=== PATIENT | female | born 1940 | race Caucasian/White ===

== ENCOUNTER 2022-03-16 11:46 | Outpatient (CLI) | payer MEDICARE ==
[2022-03-16 13:51] LABS: #Basophils 0.1 10x3/uL (0.0-0.2); #Monocytes 0.3 10x3/uL (0.0-1.1); #Neutrophils 2.2 10x3/uL (1.5-8.4); %Basophils 1.2 % (0.0-2.0); %Eosinophils 0.7 % (0.0-6.0); %Lymphocytes 37.8 % (18.0-47.0); %Monocytes 6.5 % (0.0-10.0); %Neutrophils 53.6 % (40.0-75.0); Hemoglobin 14.9 g/dL (12.0-15.5); Mean Corpuscular HGB CONC 34.5 g/dL (32.0-36.0); Mean Corpuscular Hemoglobin 32.1 pg (27.0-33.0); Mean Corpuscular Volume 93.1 fl (81.6-98.3); Mean Platelet Volume 9.5 fl (7.4-10.4); Platelet Count 189 10x3/uL (150-450); RBC Distribution Width 11.9 % (11.5-14.5); Red Blood Cell (RBC) Count 4.64 10x6/uL (3.90-5.03); White Blood Cell (WBC) Count 4.2 10x3/uL (3.5-10.5)
[2022-03-16 14:19] LABS: ALT (SGPT) 7 U/L (8-55); AST (SGOT) 14 U/L (5-34); Albumin 4.3 g/dL (3.4-4.8); Alkaline Phosphatase 71 U/L (40-110); Anion Gap 17 mmol/L (10-20); BUN (Urea Nitrogen) 15 mg/dL (9.8-20.1); Calc. Creatinine Clearance 0 mL/min (70-130); Calcium 10.1 mg/dL (7.8-10.44); Carbon Dioxide 27 mmol/L (23-31); Chloride 98 mmol/L (98-107); Estimated GFR 51; Globulin 2.7 g/dL (2.4-3.5); Glucose 91 mg/dL (83-110); Potassium 3.5 mmol/L (3.5-5.1); Sodium 138 mmol/L (136-145)
== END 2022-03-16 11:47 | disposition home or self-care (01) ==
LOC: LABBT 11:46
PROVIDERS: ATTEND Specialist
DX: Z01.818 Encounter for other preprocedural examination (principal); D50.8 Other iron deficiency anemias
CPT/HCPCS: 80053; 85025; 93005; 93010

== ENCOUNTER 2022-03-17 10:06 | Day surgery (SDC) | payer MEDICARE ==
[2022-03-16 13:17] VITALS: BMI 27.3
[2022-03-17] MEDS ORDERED: Acetaminophen 500 MG TAB ONE ×2 (10:29)
[2022-03-17] MEDS ORDERED: fentaNYL PF 100 MCG/2 ML SYRINGE ONE (12:30)
[2022-03-17] MEDS ORDERED: Bupivacaine/Epinephrine 0.25% 30 ML VIAL ONE (12:35)
[2022-03-17] MEDS ORDERED: Sodium Chloride 0.9% 100 ML ONE (12:42)
[2022-03-17] MEDS ORDERED: CEFAZOLIN 2 GM VIAL ONE (12:42)
[2022-03-17] MEDS ORDERED: NEOSTIGMINE 3 MG/3 ML SYR 3 MG/3 ML SYRINGE ONE (12:53)
[2022-03-17] MEDS ORDERED: Ondansetron PF 4 MG/2 ML Vial ONE (12:53)
[2022-03-17] MEDS ORDERED: ePHEDrine 50 MG/ML VIAL ONE (12:53)
[2022-03-17] MEDS ORDERED: Rocuronium Bromide 10 MG/ML (10ML VIAL) ONE (12:53)
[2022-03-17] MEDS ORDERED: GLYCOPYRROLATE/PF 0.2 MG/ML VIAL ONE (12:53)
[2022-03-17] MEDS ORDERED: PROPOFOL 200 MG/20 ML VIAL ONE (12:53)
[2022-03-17] MEDS ORDERED: FENTANYL 50 MCG/ML 1 ML VIAL ONE (14:38)
[2022-03-17] MEDS ORDERED: Ondansetron ODT 4 MG TAB ONE (16:12)
== END 2022-03-17 16:20 | disposition home or self-care (01) ==
LOC: SDC 10:06
PROVIDERS: ATTEND Specialist
PROC: 0FT44ZZ Resection of Gallbladder, Percutaneous Endoscopic Approach (ICD-10-PCS; principal; 2022-03-17)
DX: K80.10 Calculus of gallbladder with chronic cholecystitis without obstruction (principal); K82.8 Other specified diseases of gallbladder; K44.9 Diaphragmatic hernia without obstruction or gangrene; Z79.890 Hormone replacement therapy; Z79.899 Other long term (current) drug therapy; Z88.2 Allergy status to sulfonamides; Z88.5 Allergy status to narcotic agent; Z88.6 Allergy status to analgesic agent
CPT/HCPCS: 47562; C1889; J3010; 88304; J2405; J2704; J3490; Q0162

== ENCOUNTER 2022-05-19 05:34 | Inpatient (IN) | payer MEDICARE ==
[2022-05-19] MEDS ORDERED: CEFAZOLIN 2 GM VIAL ONE (06:28)
[2022-05-19] MEDS ORDERED: Acetaminophen 500 MG TAB ONE (06:28)
[2022-05-19] MEDS ORDERED: Sodium Chloride 0.9% 100 ML ONE (06:29)
[2022-05-19] MEDS ORDERED: Lidocaine 1% MPF 2 ML VIAL ONE (06:29)
[2022-05-19] MEDS ORDERED: Bupivacaine/Epinephrine 0.25% 30 ML VIAL ONE (06:34)
[2022-05-19] MEDS ORDERED: fentaNYL PF 100 MCG/2 ML SYRINGE ONE (06:42)
[2022-05-19 07:44] LABS: SARS-CoV-2 NAA Rapid Test Not Detected (NotDetected)
[2022-05-19] MEDS ORDERED: PROPOFOL 200 MG/20 ML VIAL ONE (07:45)
[2022-05-19] MEDS ORDERED: EPINEPHrine 1 MG/10 ML Abboject SYRINGE ONE ×3 (07:45→10:12)
[2022-05-19] MEDS ORDERED: Lidocaine 1% PF 5 ML VIAL ONE (07:45)
[2022-05-19] MEDS ORDERED: Dexamethasone 20 MG/5 ML VIAL ONE (07:45)
[2022-05-19] MEDS ORDERED: ePHEDrine 50 MG/ML VIAL ONE (07:45)
[2022-05-19] MEDS ORDERED: Calcium Chloride 1 GM/10 ML Abboject SYRINGE ONE ×3 (07:45→10:12)
[2022-05-19] MEDS ORDERED: Rocuronium Bromide 10 MG/ML (10ML VIAL) ONE (07:45)
[2022-05-19] MEDS ORDERED: Vecuronium 10 MG VIAL ONE (07:45)
[2022-05-19] MEDS ORDERED: Montelukast Sodium 10 mg Tablet PO SCH (09:00)
[2022-05-19] MEDS ORDERED: Non-Formulary Item 1 EACH (Tolterodine Tartrate [Tolterodine Tartrate Er] 4 MG Cap.Er.24h PO SCH (09:00)
[2022-05-19] MEDS ORDERED: Albumin 5% 500 ML ONE (09:25)
[2022-05-19] MEDS ORDERED: Sodium Bicarb 50 MEQ/50 ML VIAL ONE ×2 (09:26→09:40)
[2022-05-19] MEDS ORDERED: Midazolam HCl 5 mg/5 ml Vial ONE (09:28)
[2022-05-19] MEDS ORDERED: Norepinephrine 4 MG/4 ML VIAL ONE (09:51)
[2022-05-19] MEDS ORDERED: SUGAMMADEX SODIUM 200 MG/2 ML VIAL ONE (11:27)
[2022-05-19] MEDS ORDERED: Ipratropium/Albuterol 3 ML NEB NEB PRN (12:06)
[2022-05-19] MEDS ORDERED: Calcium Carbonate 500 MG ChewTAB PO PRN (12:06)
[2022-05-19] MEDS ORDERED: Promethazine HCl 25 MG/ML VIAL IM PRN (12:06)
[2022-05-19] MEDS ORDERED: Famotidine/PF 20 mg/2ml Vial SLOW IVP SCH ×2 (12:06→21:00)
[2022-05-19] MEDS ORDERED: Acetaminophen/Codeine 30-300mg Tablet PO PRN ×2 (12:06)
[2022-05-19] MEDS ORDERED: Morphine 2 MG/ML VIAL SLOW IVP PRN (12:06)
[2022-05-19] MEDS ORDERED: Dextrose 50% Abboject 50 ML SYRINGE SLOW IVP PRN (12:06)
[2022-05-19] MEDS ORDERED: Morphine 4 MG/ML VIAL SLOW IVP PRN (12:06)
[2022-05-19] MEDS ORDERED: Mag-Al 1200 mg/1200 mg/30 ML UDCUP PO PRN (12:06)
[2022-05-19] MEDS ORDERED: Famotidine 20 MG TAB PO SCH ×2 (12:06→21:00)
[2022-05-19] MEDS ORDERED: Dextrose 5% in Water 1,000 ML IV PRN (12:06)
[2022-05-19] MEDS ORDERED: hydrALAZINE 20 MG/ML VIAL SLOW IVP PRN (12:06)
[2022-05-19] MEDS ORDERED: Fentanyl 250 MCG/5 ML VIAL ONE (12:10)
[2022-05-19 12:48] LABS: #Lymphocytes 0.8 thou/uL (1.20-3.40); #Monocytes 0.2 thou/uL (0.11-0.59); %Basophils 0.2 % (0.0-1.0); %Eosinophils 0.2 % (0.0-10.0); %Lymphocytes 10.9 % (21.0-51.0); %Monocytes 3.2 % (0.0-10.0); %Neutrophils 85.6 % (42.0-75.0); Hemoglobin 8.6 g/dL (12.0-16.0); Mean Corpuscular HGB CONC 35.7 g/dL (32.0-36.0); Mean Corpuscular Hemoglobin 32.5 pg (27.0-31.0); Mean Platelet Volume 7.7 fL (7.4-10.4); Platelet Count 132 10x3/uL (130-400); RBC Distribution Width 13.9 % (11.5-14.5); Red Blood Cell (RBC) Count 2.66 mill/uL (4.20-5.40)
[2022-05-19 13:13] LABS: Anion Gap 15 mmol/L (10-20); BUN (Urea Nitrogen) 14 mg/dL (9.8-20.1); Calc. Creatinine Clearance 59 mL/min (70-130); Calcium 9.6 mg/dL (7.8-10.44); Carbon Dioxide 26 mmol/L (23-31); Chloride 104 mmol/L (98-107); Estimated GFR 63; Glucose 336 mg/dL (83-110); Potassium 3.5 mmol/L (3.5-5.1); Sodium 141 mmol/L (136-145)
[2022-05-19 13:52] VITALS: BMI 27.1
[2022-05-19] MEDS ORDERED: HumaLOG 300 UNITS/3 ML VIAL SC SCH (14:15)
[2022-05-19] MEDS: Ondansetron PF 4 MG/2 ML Vial IVP PRN (14:38)
[2022-05-19] MEDS: Levothyroxine Sodium 125 MCG TAB PO SCH (15:21)
[2022-05-19] MEDS: Amlodipine 5 MG TAB PO SCH (15:21)
[2022-05-19] MEDS: DULoxetine 20 MG CAP PO SCH ×2 (15:21→22:05)
[2022-05-19] MEDS: Trospium 20 MG TAB PO SCH ×2 (15:22→22:05)
[2022-05-19] MEDS ORDERED: traMADol HCl 50 MG TAB PO PRN (15:44)
[2022-05-19] MEDS: Acetaminophen 500 MG TAB PO PRN (16:04)
[2022-05-19] MEDS ORDERED: Fentanyl 100 MCG/2 ML VIAL SLOW IVP PRN (16:10)
[2022-05-19] MEDS ORDERED: Ketorolac Tromethamine 30 MG/ML VIAL IVP SCH ×2 (16:50→18:00)
[2022-05-19] MEDS: D5 1/2 NS w/20 mEq KCL 1,000 ML IV SCH (17:00)
[2022-05-19] MEDS: HumaLOG 300 UNITS/3 ML VIAL SC PRN (17:10)
[2022-05-19 17:26] LABS: #Lymphocytes 0.6 thou/uL (1.20-3.40); #Monocytes 1.1 thou/uL (0.11-0.59); %Eosinophils 0.1 % (0.0-10.0); %Lymphocytes 4.7 % (21.0-51.0); %Monocytes 8.4 % (0.0-10.0); %Neutrophils 86.8 % (42.0-75.0); Hemoglobin 9.3 g/dL (12.0-16.0); Mean Corpuscular HGB CONC 34.4 g/dL (32.0-36.0); Mean Corpuscular Hemoglobin 31.2 pg (27.0-31.0); Mean Corpuscular Volume 90.6 fl (78.0-98.0); Mean Platelet Volume 7.6 fL (7.4-10.4); Platelet Count 158 10x3/uL (130-400); RBC Distribution Width 14.3 % (11.5-14.5); Red Blood Cell (RBC) Count 2.99 mill/uL (4.20-5.40); White Blood Cell (WBC) Count 12.7 10x3/uL (4.8-10.8)
[2022-05-19 17:58] LABS: INR-International Normal Ratio 1.2; PTT 24.7 sec (22.9-36.1); Prothrombin Time 15.8 sec (12.0-14.7)
[2022-05-19] MEDS ORDERED: Fentanyl CADD 100 ML IVPB SCH (18:30)
[2022-05-19] MEDS: Ketorolac Tromethamine 30 MG/ML VIAL IVP SCH (23:49)
[2022-05-20] MEDS: HumaLOG 300 UNITS/3 ML VIAL SC PRN ×2 (00:22→06:52)
[2022-05-20] MEDS: D5 1/2 NS w/20 mEq KCL 1,000 ML IV SCH ×3 (01:14→18:15)
[2022-05-20] MEDS: Ondansetron PF 4 MG/2 ML Vial IVP PRN ×2 (01:57→21:30)
[2022-05-20 04:45] LABS: #Lymphocytes 0.7 thou/uL (1.20-3.40); #Monocytes 1.1 thou/uL (0.11-0.59); #Neutrophils 8.4 thou/uL (1.40-6.50); %Basophils 0.2 % (0.0-1.0); %Eosinophils 0.1 % (0.0-10.0); %Monocytes 10.3 % (0.0-10.0); %Neutrophils 82.3 % (42.0-75.0); Hemoglobin 8.5 g/dL (12.0-16.0); Mean Corpuscular HGB CONC 34.2 g/dL (32.0-36.0); Mean Corpuscular Hemoglobin 31.2 pg (27.0-31.0); Mean Corpuscular Volume 91.1 fl (78.0-98.0); Platelet Count 125 10x3/uL (130-400); RBC Distribution Width 14.6 % (11.5-14.5); Red Blood Cell (RBC) Count 2.73 mill/uL (4.20-5.40); White Blood Cell (WBC) Count 10.2 10x3/uL (4.8-10.8)
[2022-05-20 04:55] LABS: Hemoglobin A1c 5.4 % (4.0-6.0)
[2022-05-20 05:16] LABS: Anion Gap 11 mmol/L (10-20); BUN (Urea Nitrogen) 24 mg/dL (9.8-20.1); Calc. Creatinine Clearance 69 mL/min (70-130); Calcium 8.7 mg/dL (7.8-10.44); Carbon Dioxide 28 mmol/L (23-31); Chloride 103 mmol/L (98-107); Estimated GFR 72; Glucose 183 mg/dL (83-110); Potassium 4.3 mmol/L (3.5-5.1); Sodium 138 mmol/L (136-145)
[2022-05-20] MEDS: Ketorolac Tromethamine 30 MG/ML VIAL IVP SCH ×4 (06:04→23:28)
[2022-05-20] MEDS ORDERED: Insulin Glargine 30 UNITS/0.3 ML VIAL SC SCH (09:00)
[2022-05-20] MEDS ORDERED: HumaLOG 300 UNITS/3 ML VIAL SC SCH (09:00)
[2022-05-20] MEDS ORDERED: HumaLOG 300 UNITS/3 ML VIAL SC PRN ×2 (09:17→09:30)
[2022-05-20] MEDS ORDERED: D5 1/2 NS w/20 mEq KCL 1,000 ML IV SCH (09:19)
[2022-05-20] MEDS ORDERED: Dextrose 5% in Water 1,000 ML IV PRN (09:30)
[2022-05-20] MEDS ORDERED: Dextrose 50% Abboject 50 ML SYRINGE IVP PRN (09:30)
[2022-05-20] MEDS: Levothyroxine Sodium 125 MCG TAB PO SCH (09:37)
[2022-05-20] MEDS: Pantoprazole 40 MG VIAL IVP SCH (09:37)
[2022-05-20] MEDS: Amlodipine 5 MG TAB PO SCH (09:37)
[2022-05-20] MEDS: Trospium 20 MG TAB PO SCH ×2 (09:37→22:34)
[2022-05-20] MEDS: DULoxetine 20 MG CAP PO SCH ×2 (10:46→22:33)
[2022-05-20] MEDS ORDERED: traMADol HCl 50 MG TAB PO PRN (13:05)
[2022-05-20 13:06] LABS: Hemoglobin 7.5 g/dL (12.0-16.0); Platelet Count 121 10x3/uL (130-400)
[2022-05-20] MEDS ORDERED: Sodium Chloride 0.9% 500 ML IV SCH (13:15)
[2022-05-20] MEDS: Fentanyl 100 MCG/2 ML VIAL SLOW IVP PRN ×6 (14:14→23:29)
[2022-05-20 18:13] LABS: Hemoglobin 10.5 g/dL (12.0-16.0); Platelet Count 100 10x3/uL (130-400)
[2022-05-20] MEDS: Acetaminophen 500 MG TAB PO PRN (20:33)
[2022-05-20] MEDS: traMADol HCl 50 MG TAB PO PRN (20:33)
[2022-05-20 23:36] LABS: Bacteria/HPF 4+ HPF (None Seen); Bilirubin Negative (Negative); Blood, Urine Negative (Negative); CAUTI Indications for Culture Alt mental st,lethar; Clarity Turbid (Clear); Glucose, Urine (Dipstick) Normal (Negative); Ketone, Urine Negative (Negative); Leukocyte Negative Leu/uL (Negative); Mucous/LPF Rare LPF (<2+); Nitrite Negative (Negative); Protein, Urine (Dipstick) 50 mg/dL (Neg-Trace); RBC/HPF 0-3 HPF (0-3); Specific Gravity, Urine 1.024 (1.002-1.036); Squamous Epithelial 0-3 HPF (0-3); Urobilinogen Normal mg/dL (Less than 2); pH, Urine 5.5 (5.0-9.0)
[2022-05-20 23:39] LABS: Urine Culture Reflex No No
[2022-05-21] MEDS: Fentanyl 100 MCG/2 ML VIAL SLOW IVP PRN ×3 (00:39→08:04)
[2022-05-21] MEDS ORDERED: cefTRIAXone\\ROCEPHIN 2 GM in Sodium Chloride 0.9% 100 ML IVPB SCH (01:00)
[2022-05-21] MEDS: traMADol HCl 50 MG TAB PO PRN ×2 (01:57→08:06)
[2022-05-21] MEDS: Acetaminophen 500 MG TAB PO PRN ×2 (01:58→08:05)
[2022-05-21] MEDS: Ondansetron PF 4 MG/2 ML Vial IVP PRN (02:56)
[2022-05-21 04:41] LABS: Hemoglobin 9.9 g/dL (12.0-16.0); Mean Corpuscular HGB CONC 33.8 g/dL (32.0-36.0); Mean Corpuscular Hemoglobin 31.2 pg (27.0-31.0); Mean Corpuscular Volume 92.1 fl (78.0-98.0); Platelet Count 94 10x3/uL (130-400); RBC Distribution Width 14.3 % (11.5-14.5); Red Blood Cell (RBC) Count 3.17 mill/uL (4.20-5.40); White Blood Cell (WBC) Count 6.8 10x3/uL (4.8-10.8)
[2022-05-21] MEDS ORDERED: Sodium Chloride 0.9% 500 ML IV SCH ×2 (05:00→06:15)
[2022-05-21 05:07] LABS: Magnesium 1.4 mg/dL (1.6-2.6)
[2022-05-21 05:11] LABS: ALT (SGPT) 222 U/L (8-55); AST (SGOT) 284 U/L (5-34); Albumin 2.5 g/dL (3.4-4.8); Alkaline Phosphatase 49 U/L (40-110); Anion Gap 15 mmol/L (10-20); BUN (Urea Nitrogen) 36 mg/dL (9.8-20.1); Bilirubin, Total 0.9 mg/dL (0.2-1.2); Calc. Creatinine Clearance 34 mL/min (70-130); Calcium 8.1 mg/dL (7.8-10.44); Carbon Dioxide 19 mmol/L (23-31); Chloride 106 mmol/L (98-107); Estimated GFR 30; Globulin 1.7 g/dL (2.4-3.5); Glucose 120 mg/dL (83-110); Protein, Total 4.2 g/dL (5.8-8.1); Sodium 135 mmol/L (136-145)
[2022-05-21] MEDS ORDERED: D5 1/2 NS w/20 mEq KCL 1,000 ML IV SCH ×2 (05:12→06:32)
[2022-05-21] MEDS: Ketorolac Tromethamine 30 MG/ML VIAL IVP SCH ×2 (05:26→14:32)
[2022-05-21] MEDS ORDERED: Magnesium 2 GM/50 ML(in water) 2 GM in Premix Bag 1 BAG IVPB SCH (05:30)
[2022-05-21 05:31] LABS: Band 27 % (5-11); Lymphocytes 16 % (21-51); MDiff Complete? YES; Metamyelocyte 10 % (0-0); Monocytes 4 % (0-10); Myelocyte 3 % (0-0); Neutrophil 40 % (42-75); Ovalocytes SLIGHT = 2-5 cells (100X) (0-1/hpf); Platelet Morphology Comment Appears Decreased; Polychromasia SLIGHT = 2-3 cells (100X) (0-2/hpf)
[2022-05-21] MEDS ORDERED: Magnesium Sulfate In Water 4 GM in Premix Bag 1 BAG IVPB SCH (06:00)
[2022-05-21] MEDS ORDERED: NOREPINEPHRINE 8 MG/250 ML-D5W 250 ML IVPB SCH (06:30)
[2022-05-21] MEDS ORDERED: Dextrose 5 % And 0.9 % NaCl 1,000 ML IV SCH (06:45)
[2022-05-21 07:31] LABS: Troponin I 0.139 ng/mL (< 0.028)
[2022-05-21 07:45] LABS: Actual Bicarbonate (HCO3a) 17.3 mEq/L (22-28); Base Excess (BEa) -8.3 mEq/L (-2.0 to +3.0); CO2 Tension 36.4 mmHg (35.0-45.0); Calcium, Ionized (arterial) 1.11 mmol/L (1.12-1.30); Potassium - ABG Lab 5.07 mmol/L (3.70-5.30)
[2022-05-21 07:48] LABS: Puncture Site Arterial Line
[2022-05-21] MEDS: Amlodipine 5 MG TAB PO SCH (07:57)
[2022-05-21] MEDS ORDERED: Sodium Bicarbonate 50 MEQ in Sodium Chloride 0.45% 1,000 ML IV SCH (08:00)
[2022-05-21] MEDS: Pantoprazole 40 MG VIAL IVP SCH (08:04)
[2022-05-21] MEDS: Levothyroxine Sodium 125 MCG TAB PO SCH (08:05)
[2022-05-21] MEDS: Trospium 20 MG TAB PO SCH (08:05)
[2022-05-21] MEDS: DULoxetine 20 MG CAP PO SCH (09:18)
[2022-05-21] MEDS ORDERED: Heparin 25,000 units/D5W 500 ML IVPB SCH (11:45)
[2022-05-21] MEDS ORDERED: Heparin 10,000 UNITS/ 10 ML VIAL SLOW IVP SCH (11:45)
[2022-05-21] MEDS ORDERED: Dextrose 50% Abboject 50 ML SYRINGE SLOW IVP SCH (12:03)
[2022-05-21] MEDS ORDERED: Calcium Chloride 1 GM/10 ML Abboject SYRINGE ONE (12:04)
[2022-05-21 12:13] LABS: Hemoglobin 9.6 g/dL (12.0-16.0); Platelet Count 99 10x3/uL (130-400)
[2022-05-21] MEDS ORDERED: Calcium Chloride 1 GM/10 ML Abboject SYRINGE IVP SCH (12:15)
[2022-05-21] MEDS ORDERED: Insulin Regular 300 UNITS/3 ML VIAL IVP SCH (12:15)
[2022-05-21] MEDS ORDERED: HumaLOG 300 UNITS/3 ML VIAL IVP SCH (12:15)
[2022-05-21 12:18] LABS: Hemoglobin 9.7 g/dL (12.0-16.0); Mean Corpuscular HGB CONC 32.5 g/dL (32.0-36.0); Mean Corpuscular Hemoglobin 31.4 pg (27.0-31.0); Mean Corpuscular Volume 96.4 fl (78.0-98.0); Mean Platelet Volume 9.3 fL (7.4-10.4); Platelet Count 97 10x3/uL (130-400); RBC Distribution Width 14.8 % (11.5-14.5); Red Blood Cell (RBC) Count 3.08 mill/uL (4.20-5.40); White Blood Cell (WBC) Count 7.1 10x3/uL (4.8-10.8)
[2022-05-21] MEDS ORDERED: Sodium Bicarb 50 MEQ/50 ML VIAL ONE (12:24)
[2022-05-21 12:29] LABS: Base Excess (BEa) -17.3 mEq/L (-2.0 to +3.0); CO2 Tension 51.6 mmHg (35.0-45.0); Calcium, Ionized (arterial) 1.31 mmol/L (1.12-1.30); O2 Tension (PaO2), arterial 79.7 mmHg (> 60.0); Potassium - ABG Lab 5.25 mmol/L (3.70-5.30)
[2022-05-21 12:30] LABS: Actual Bicarbonate (HCO3a) 13.5 mEq/L (22-28); Puncture Site Arterial Line; pH, Arterial 7.04 (7.35-7.45)
[2022-05-21] MEDS ORDERED: Sodium Bicarb 50 MEQ/50 ML VIAL IVP SCH ×2 (12:30→13:30)
[2022-05-21 12:31] LABS: ALT (SGPT) 511 U/L (8-55); AST (SGOT) 577 U/L (5-34); Albumin 2.1 g/dL (3.4-4.8); Alkaline Phosphatase 64 U/L (40-110); Anion Gap 21 mmol/L (10-20); BUN (Urea Nitrogen) 40 mg/dL (9.8-20.1); Bilirubin, Total 1.1 mg/dL (0.2-1.2); Calc. Creatinine Clearance 27 mL/min (70-130); Calcium 7.5 mg/dL (7.8-10.44); Carbon Dioxide 10 mmol/L (23-31); Chloride 111 mmol/L (98-107); Estimated GFR 23; Globulin 1.5 g/dL (2.4-3.5); Glucose 67 mg/dL (83-110); Potassium 5.9 mmol/L (3.5-5.1); Protein, Total 3.6 g/dL (5.8-8.1); Sodium 136 mmol/L (136-145)
[2022-05-21] MEDS ORDERED: Rocuronium Bromide 10 MG/ML (10ML VIAL) ONE ×2 (12:35→17:15)
[2022-05-21 12:38] LABS: Band 34 % (5-11); Burr Cells SLIGHT = 2-5 cells (100X) (0-1/hpf); Lymphocytes 19 % (21-51); MDiff Complete? YES; Metamyelocyte 11 % (0-0); Monocytes 3 % (0-10); Myelocyte 5 % (0-0); Neutrophil 27 % (42-75); Nucleated RBC 1 % (0); Ovalocytes SLIGHT = 2-5 cells (100X) (0-1/hpf); Platelet Morphology Comment Appears Decreased; Polychromasia SLIGHT = 2-3 cells (100X) (0-2/hpf); Reactive Lymphocytes 1 % (0-10); Toxic Granulation SLIGHT; Vacuoles SLIGHT
[2022-05-21] MEDS ORDERED: Sodium Bicarb 50 MEQ/50 ML Abboject 8.4% SYRINGE IVP SCH (12:45)
[2022-05-21 12:53] LABS: CKMB 27.4 ng/mL (0-6.6)
[2022-05-21] MEDS ORDERED: Ventilator Sedation Protocol 1 EACH FS PRN (13:00)
[2022-05-21] MEDS ORDERED: Ketamine 50 MG/ML (10ML VIAL) ONE (13:21)
[2022-05-21] MEDS ORDERED: PROPOFOL 0 ML ONE (13:21)
[2022-05-21 13:25] LABS: Actual Bicarbonate (HCO3a) 15.1 mEq/L (22-28); Analyzer IN Cardio ER; Base Excess (BEa) -11.9 mEq/L (-2.0 to +3.0); CO2 Tension 38.8 mmHg (35.0-45.0); Calcium, Ionized (arterial) 1.14 mmol/L (1.12-1.30); Carboxyhemoglobin (COHb) 0.3 gm% (0.0-3.0); Hemoglobin (Hb) 9.3 g/dL (12.0-16.0); O2 Tension (PaO2), arterial 123.6 mmHg (> 60.0); Potassium - ABG Lab 5.11 mmol/L (3.70-5.30); pH, Arterial 7.21 (7.35-7.45)
[2022-05-21 13:29] LABS: Puncture Site Arterial Line
[2022-05-21] MEDS ORDERED: Sodium Bicarbonate 150 MEQ in Dextrose 5% in Water 1,000 ML IV SCH (13:30)
[2022-05-21] MEDS ORDERED: Fentanyl CADD 100 ML IV SCH (13:30)
[2022-05-21] MEDS ORDERED: Lorazepam 2 MG/ML VIAL SLOW IVP PRN (13:30)
[2022-05-21] MEDS ORDERED: Fentanyl BOLUS 250 ML IVPB PRN (13:30)
[2022-05-21] MEDS ORDERED: Propofol 1,000 MG/100 ML VIAL IV PRN (13:30)
[2022-05-21] MEDS ORDERED: Propofol BOLUS 1,000 MG/100 ML VIAL IV PRN (13:30)
[2022-05-21] MEDS ORDERED: DISCONTINUE PREVIOUS NARCOTIC PAIN MEDICATIONS AND BENZODIAZEPINES FS SCH (13:30)
[2022-05-21] MEDS ORDERED: Rocuronium Bromide 50 MG/5 ML VIAL ONE (13:32)
[2022-05-21] MEDS ORDERED: Pantoprazole 80 MG in Sodium Chloride 0.9% 100 ML IVPB SCH (14:45)
[2022-05-21] MEDS ORDERED: Meropenem 1 GM in Sodium Chloride 0.9% 100 ML IVPB SCH (14:45)
[2022-05-21 15:32] LABS: Hemoglobin 9.5 g/dL (12.0-16.0); Mean Corpuscular Hemoglobin 31.8 pg (27.0-31.0); Mean Corpuscular Volume 93.6 fl (78.0-98.0); Mean Platelet Volume 9.1 fL (7.4-10.4); Platelet Count 69 10x3/uL (130-400); RBC Distribution Width 14.2 % (11.5-14.5); Red Blood Cell (RBC) Count 2.99 mill/uL (4.20-5.40); White Blood Cell (WBC) Count 3.4 10x3/uL (4.8-10.8)
[2022-05-21 16:15] LABS: Band 32 % (5-11); Burr Cells SLIGHT = 2-5 cells (100X) (0-1/hpf); Lymphocytes 24 % (21-51); MDiff Complete? YES; Metamyelocyte 12 % (0-0); Monocytes 4 % (0-10); Myelocyte 1 % (0-0); Neutrophil 25 % (42-75); Nucleated RBC 1 % (0); Ovalocytes SLIGHT = 2-5 cells (100X) (0-1/hpf); Platelet Morphology Comment Appears Decreased; Polychromasia MODERATE = 3-4 cells (100X) (0-2/hpf); Reactive Lymphocytes 2 % (0-10); Vacuoles SLIGHT
[2022-05-21] MEDS ORDERED: Fentanyl 250 MCG/5 ML VIAL ONE (16:43)
[2022-05-21] MEDS ORDERED: Norepinephrine 4 MG/4 ML VIAL ONE (16:44)
[2022-05-21 16:49] LABS: Lactic Acid 10.5 mmol/L (0.5-2.2)
[2022-05-21] MEDS ORDERED: Midazolam HCl 2 mg/2 ml Vial ONE (16:50)
[2022-05-21 16:53] LABS: Actual Bicarbonate (HCO3a) 15.4 mEq/L (22-28); Base Excess (BEa) -8.9 mEq/L (-2.0 to +3.0); CO2 Tension 28.3 mmHg (35.0-45.0); Calcium, Ionized (arterial) 1.11 mmol/L (1.12-1.30); Carboxyhemoglobin (COHb) 0.2 gm% (0.0-3.0); Hemoglobin (Hb) 9.4 g/dL (12.0-16.0); O2 Tension (PaO2), arterial 140.1 mmHg (> 60.0); Potassium - ABG Lab 4.36 mmol/L (3.70-5.30); pH, Arterial 7.36 (7.35-7.45)
[2022-05-21 16:54] LABS: ALV-art Gradient 537.525 mmHg (0-20); Puncture Site Arterial Line
[2022-05-21] MEDS ORDERED: Pantoprazole 40 MG VIAL IVP SCH (21:00)
[2022-05-21 21:46] VITALS: TEMP 97
[2022-05-21] MEDS ORDERED: Meropenem 500 MG in Sodium Chloride 0.9% 100 ML IVPB SCH (23:00)
[2022-05-25 11:34] LABS: Actual Bicarbonate (HCO3a) 27.7 mEq/L (22-28); Analyzer IN Cardio OR; Base Excess (BEa) -0.8 mEq/L (-2.0 to +3.0); Calcium, Ionized (arterial) 1.31 mmol/L (1.12-1.30); Carboxyhemoglobin (COHb) 0.5 gm% (0.0-3.0); Hemoglobin (Hb) 11.3 g/dL (12.0-16.0); pH, Arterial 7.24 (7.35-7.45)
[2022-05-25 11:35] LABS: Actual Bicarbonate (HCO3a) 23.5 mEq/L (22-28); Analyzer IN Cardio OR; Base Excess (BEa) -4.9 mEq/L (-2.0 to +3.0); Calcium, Ionized (arterial) 1.28 mmol/L (1.12-1.30); Carboxyhemoglobin (COHb) 0.4 gm% (0.0-3.0); Hemoglobin (Hb) 9.4 g/dL (12.0-16.0); O2 Tension (PaO2), arterial 291.4 mmHg (> 60.0); Potassium - ABG Lab 3.39 mmol/L (3.70-5.30)
[2022-05-25 11:35] LABS: Actual Bicarbonate (HCO3a) 23.4 mEq/L (22-28); Analyzer IN Cardio OR; Base Excess (BEa) -5.9 mEq/L (-2.0 to +3.0); Calcium, Ionized (arterial) 1.17 mmol/L (1.12-1.30); Carboxyhemoglobin (COHb) 0.5 gm% (0.0-3.0); Hemoglobin (Hb) 11.3 g/dL (12.0-16.0); O2 Tension (PaO2), arterial 90.3 mmHg (> 60.0); Potassium - ABG Lab 4.07 mmol/L (3.70-5.30)
[2022-05-25 11:54] LABS: Actual Bicarbonate (HCO3a) 24.2 mEq/L (22-28); Analyzer IN Cardio OR; Base Excess (BEa) 0.4 mEq/L (-2.0 to +3.0); CO2 Tension 35.4 mmHg (35.0-45.0); Calcium, Ionized (arterial) 1.09 mmol/L (1.12-1.30); Carboxyhemoglobin (COHb) 0.6 gm% (0.0-3.0); Potassium - ABG Lab 3.39 mmol/L (3.70-5.30); pH, Arterial 7.45 (7.35-7.45)
[2022-05-25 11:55] LABS: CO2 Tension 66.8 mmHg (35.0-45.0); O2 Tension (PaO2), arterial 57.6 mmHg (> 60.0)
[2022-05-25 11:56] LABS: Puncture Site Arterial Line
[2022-05-25 11:57] LABS: CO2 Tension 65.8 mmHg (35.0-45.0); Puncture Site Arterial Line; pH, Arterial 7.17 (7.35-7.45)
[2022-05-25 11:59] LABS: CO2 Tension 62.3 mmHg (35.0-45.0); Puncture Site Arterial Line
[2022-05-25 12:34] LABS: Puncture Site Arterial Line
== END 2022-05-21 20:25 | disposition expired | DRG 326 ==
LOC: SDC 05:34 → CCU 08:07
PROVIDERS: ADMIT Specialist; ATTEND Specialist
PROC: 0BQT0ZZ Repair Diaphragm, Open Approach (ICD-10-PCS; principal; 2022-05-19)
PROC: 30233L1 Transfusion of Nonautologous Fresh Plasma into Peripheral Vein, Percutaneous Approach (ICD-10-PCS; 2022-05-19)
PROC: 0DV40ZZ Restriction of Esophagogastric Junction, Open Approach (ICD-10-PCS; 2022-05-19)
PROC: 30233N1 Transfusion of Nonautologous Red Blood Cells into Peripheral Vein, Percutaneous Approach (ICD-10-PCS; 2022-05-19)
PROC: 30233R1 Transfusion of Nonautologous Platelets into Peripheral Vein, Percutaneous Approach (ICD-10-PCS; 2022-05-19)
PROC: 0WJG0ZZ Inspection of Peritoneal Cavity, Open Approach (ICD-10-PCS; 2022-05-21)
PROC: 0BH17EZ Insertion of Endotracheal Airway into Trachea, Via Natural or Artificial Opening (ICD-10-PCS; 2022-05-21)
PROC: 5A1935Z Respiratory Ventilation, Less than 24 Consecutive Hours (ICD-10-PCS; 2022-05-21)
PROC: 3E033XZ Introduction of Vasopressor into Peripheral Vein, Percutaneous Approach (ICD-10-PCS; 2022-05-21)
PROC: 0D9670Z Drainage of Stomach with Drainage Device, Via Natural or Artificial Opening (ICD-10-PCS; 2022-05-21)
PROC: 0DJ08ZZ Inspection of Upper Intestinal Tract, Via Natural or Artificial Opening Endoscopic (ICD-10-PCS; 2022-05-21)
DX: K44.9 Diaphragmatic hernia without obstruction or gangrene (principal); G93.41 Metabolic encephalopathy; T81.19XA Other postprocedural shock, initial encounter; J96.00 Acute respiratory failure, unspecified whether with hypoxia or hypercapnia; D62 Acute posthemorrhagic anemia; I97.52 Accidental puncture and laceration of a circulatory system organ or structure during other procedure; K55.9 Vascular disorder of intestine, unspecified; K91.61 Intraoperative hemorrhage and hematoma of a digestive system organ or structure complicating a digestive system procedure; Z20.822 Contact with and (suspected) exposure to COVID-19; K80.20 Calculus of gallbladder without cholecystitis without obstruction; Z79.899 Other long term (current) drug therapy; Z90.49 Acquired absence of other specified parts of digestive tract; E03.9 Hypothyroidism, unspecified; I10 Essential (primary) hypertension; Y83.8 Other surgical procedures as the cause of abnormal reaction of the patient, or of later complication, without mention of misadventure at the time of the procedure; R73.9 Hyperglycemia, unspecified; K31.9 Disease of stomach and duodenum, unspecified; K20.90 Esophagitis, unspecified without bleeding
CPT/HCPCS: 36416; 36430; 71045; 71250; 74018; 74177; 80048; 80053; 81001; 82330; 82533; 82553; 82805; 83036; 83605; 83735; 83880; 84443; 84484; 85025; 85610; 85730; 86850; 86900; 86901; 93005; 93010; 93306; 93970; 94002; 94660; C1713; C1776; C1889; C9113; J0171; J0696; J1100; J1644; J1815; J1885; J2250; J2405; J2550; J2704; J3010; J3475; J3480; J3490; J7030; J7042; J7070; J7999; P9016; P9035; P9045; P9048; P9059; S0028; U0002